=== PATIENT | male | born 1965 | race Caucasian/White ===

== ENCOUNTER 2024-02-03 18:02 | Emergency (ER) | payer BC ==
[~2024-02-03] VITALS: Ht 172.7 cm; Wt 103.2 kg
[2024-02-03 18:14] VITALS: TEMP 97.2
[2024-02-03] MEDS ORDERED: CEPHALEXIN500 M1 PO (19:07)
[2024-02-03] MEDS ORDERED: Home Cephalexin 500 MG #2 CAP/PACK PO ONE (19:15)
[2024-02-03] MEDS ORDERED: Cephalexin 500 MG CAP PO ONE (19:15)
[2024-02-03 19:16] VITALS: BP 133/71; PULSE 77
== END 2024-02-03 19:31 | disposition home or self-care (01) ==
LOC: COL.ER 18:02
DX: S91.111A Laceration without foreign body of right great toe without damage to nail, initial encounter (principal); S91.114A Laceration without foreign body of right lesser toe(s) without damage to nail, initial encounter; W22.8XXA Striking against or struck by other objects, initial encounter